=== PATIENT | female | born 1980 | race Hispanic/Latino ===

== ENCOUNTER 2017-02-22 12:26 | Emergency (ER) | payer OTHER ==
[2017-02-22 12:54] VITALS: BP 123/82
--- NOTE | 2017-02-22 13:13 | XRay Report ---
LEFT HAND, 3 views: History: Left hand pain and injury. Please note this exam is erroneously labeled the right hand. An oblique fracture through the proximal phalanx of the fourth digit is identified. Displacement measures up to 2 mm. No calcified callus. Remaining bony structures and joint spaces are unremarkable. Mild soft tissue swelling. IMPRESSION: Traumatic fracture, proximal phalanx, fourth digit.
[2017-02-22] MEDS ORDERED: NORCO 5/325 PO ONE (14:34)
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
== END 2017-02-22 16:30 | disposition home or self-care (01) ==
LOC: ED 12:26
DX: S62.615A Displaced fracture of proximal phalanx of left ring finger, initial encounter for closed fracture (principal); F17.200 Nicotine dependence, unspecified, uncomplicated; V89.2XXA Person injured in unspecified motor-vehicle accident, traffic, initial encounter; Y93.89 Activity, other specified; Y99.9 Unspecified external cause status; Y92.410 Unspecified street and highway as the place of occurrence of the external cause